=== PATIENT | female | born 1945 | race Caucasian/White ===

== ENCOUNTER 2021-04-11 13:20 | Emergency (ER) | payer MEDICARE, OTHER ==
[~2021-04-11] VITALS: Ht 172.7 cm; Wt 86.0 kg
[2021-04-11] MEDS ORDERED: KETOROLAC 30 MG/1 ML ONE (14:59)
[2021-04-11] MEDS ORDERED: DIAZEPAM 5 MG TABLET ONE (14:59)
[2021-04-11] MEDS ORDERED: OXYcodone/APAP 5/325MG TABLET ONE (14:59)
[2021-04-11] MEDS ORDERED: DIAZEPAM 5 MG TABLET PO ONE (15:00)
[2021-04-11] MEDS ORDERED: KETOROLAC 30 MG/1 ML IM ONE (15:00)
[2021-04-11] MEDS ORDERED: OXYcodone/APAP 5/325MG TABLET PO ONE (15:00)
[2021-04-11 16:00] VITALS: BP 138/88
== END 2021-04-11 16:02 | disposition home or self-care (01) ==
LOC: ED 15:49
DX: M47.812 Spondylosis without myelopathy or radiculopathy, cervical region (principal); I10 Essential (primary) hypertension; Z87.891 Personal history of nicotine dependence
CPT/HCPCS: 96372; 99283; J1885

== ENCOUNTER 2021-06-11 12:21 | Inpatient (IN) | payer MEDICARE, OTHER ==
[~2021-06-11] VITALS: Ht 172.7 cm; Wt 86.6 kg
--- NOTE | 2021-06-11 13:13 | NUR ---
PT CALLED, NOT IN LOBBY
[2021-06-11] MEDS ORDERED: SODIUM CHLORIDE FLUSH 10ML SYR IVF ONE (14:00)
[2021-06-11] MEDS ORDERED: DIPH,PERTUSS(ACELL),TET VAC/PF 0.5 ML IM-VACC ONE ×2 (14:30→16:33)
--- NOTE | 2021-06-11 14:52 | NUR ---
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
[2021-06-11 14:58] LABS: BASOPHILS % (AUTO) 1 % (0-1); EOSINOPHILS % (AUTO) 0 % (1-7); LYMPHOCYTES % (AUTO) 23 % (22-44); MEAN CORPUSCULAR HGB CONC 33.5 g/dL (32.4-35.8); MEAN PLATELET VOLUME 7.5 fL (7.4-10.4); MONOCYTES % (AUTO) 9 % (2-9); NEUTROPHILS % (AUTO) 67 % (42-75); PLATELET COUNT 229 x10^3/uL (130-400); RED BLOOD COUNT 4.02 x10^6/uL (3.82-5.3)
--- NOTE | 2021-06-11 15:05 | NUR ---
CC OF WEAKNESS THROUGHOUT, BLURRY VISION, AND NEW TREMORS. PT REPORTS HAVING A FALL LAST NIGHT WHILE MAKING HER BED AND HITTING THE BACK OF HER HEAD. NO OBVIOUS BLEEDING, PT REPORTS BLEEDING WAS CONTROLLED AT HOME AND NO LOC. PT ALSO STATES SHE NORMALLY DOES NOT HAVE PERIPHERAL VISION BUT LATELY VISION HAS BEEN MORE BLURRY. LEFT EYE IS A PROSTHETIC. RIGHT PUPIL IS OVAL SHAPED WHICH SHE STATES HAS BEEN PRESENT SINCE . AFTER AMBULATING PT TO RESTROOM, PTS LEFT ARM BECAME VERY TERMULOUS. PT ABLE TO GRAB BEDSIDE RAILING TO STOP TREMOR BUT IT DOES CONTINUE WHEN SHE LETS GO.
[2021-06-11 15:07] LABS: ALBUMIN 3.9 g/dL (3.4-5.0); ANION GAP 14 mmol/L (5-15); CALCIUM 9.5 mg/dL (8.5-10.1); CHLORIDE 101 mmol/L (98-107)
[2021-06-11 15:23] LABS: ALANINE AMINOTRANSFERASE 236 U/L (12-78); ALKALINE PHOSPHATASE 77 U/L (45-117); BILIRUBIN,TOTAL 0.5 mg/dL (0.2-1.0); CREATININE 4.26 mg/dL (0.55-1.02); TOTAL PROTEIN 7.7 g/dL (6.4-8.2)
[2021-06-11 15:25] LABS: TROPONIN I 0.281 ng/mL (0.000-0.045)
[2021-06-11] MEDS ORDERED: SODIUM CHLORIDE 0.9% 1,000 ML IV ONE (15:30)
[2021-06-11 15:44] LABS: MICROSCOPIC INDICATED
[2021-06-11] MEDS ORDERED: CEFTRIAXONE 1,000 MG in DEXTROSE 5% 50 ML IVPB ONE (17:30)
[2021-06-11] MEDS ORDERED: BISACODYL 10 MG SUPP PR PRN (18:30)
[2021-06-11] MEDS ORDERED: ONDANSETRON ODT 4 MG PO PRN (18:30)
[2021-06-11] MEDS ORDERED: POLYETHYLENE GLYCOL 17 GM PACKET PO PRN (18:30)
--- NOTE | 2021-06-11 18:44 | NUR ---
US AT BEDSIDE
[2021-06-11 20:43] LABS: TROPONIN I 0.196 ng/mL (0.000-0.045)
--- NOTE | 2021-06-11 22:50 | NUR ---
REPORT GIVEN TO ROSA MARTINEZ
[2021-06-11 23:25] VITALS: BP 157/82
[2021-06-11] MEDS: SODIUM CHLORIDE 0.9% 1,000 ML IV SCH (23:28)
[2021-06-11] MEDS: HEPARIN 5,000 UNITS/ML, 1ML SQ SCH (23:28)
[2021-06-12] VITALS (8 sets, daily range): BP systolic 119–183; BP diastolic 63–91
[2021-06-12 03:39] LABS: ALANINE AMINOTRANSFERASE 189 U/L (12-78); ALBUMIN 3.7 g/dL (3.4-5.0); ANION GAP 10 mmol/L (5-15); CALCIUM 9.4 mg/dL (8.5-10.1); CHLORIDE 110 mmol/L (98-107); CREATININE 1.77 mg/dL (0.55-1.02); TROPONIN I 0.166 ng/mL (0.000-0.045)
[2021-06-12 03:41] LABS: ALKALINE PHOSPHATASE 67 U/L (45-117); BILIRUBIN,TOTAL 0.5 mg/dL (0.2-1.0); TOTAL PROTEIN 7.4 g/dL (6.4-8.2)
[2021-06-12 04:31] LABS: BASOPHILS % (AUTO) 1 % (0-1); EOSINOPHILS % (AUTO) 1 % (1-7); LYMPHOCYTES % (AUTO) 40 % (22-44); MEAN CORPUSCULAR HEMOGLOBIN 34.5 pg (27.0-34.8); MEAN CORPUSCULAR HGB CONC 34.3 g/dL (32.4-35.8); MEAN PLATELET VOLUME 7.6 fL (7.4-10.4); MONOCYTES % (AUTO) 10 % (2-9); NEUTROPHILS % (AUTO) 49 % (42-75); PLATELET COUNT 177 x10^3/uL (130-400); RED BLOOD COUNT 3.61 x10^6/uL (3.82-5.3); RED CELL DISTRIBUTION WIDTH 14.1 % (9.6-15.2)
[2021-06-12] MEDS: ASPIRIN 81 MG TABLET EC PO SCH (06:07)
[2021-06-12 06:48] LABS: CHLORIDE,URINE RANDOM 19 mmol/L; POTASSIUM,URINE RANDOM 8 mmol/L; SODIUM,URINE RANDOM 38 mmol/L
[2021-06-12] MEDS: ACETAMINOPHEN 325 MG TABLET PO PRN ×3 (07:26→19:49)
[2021-06-12] MEDS: HEPARIN 5,000 UNITS/ML, 1ML SQ SCH ×2 (07:30→16:57)
[2021-06-12] MEDS: SENNA/DOCUSATE TABLET PO SCH (07:30)
[2021-06-12] MEDS: SODIUM CHLORIDE 0.9% 1,000 ML IV SCH ×2 (07:30→17:02)
[2021-06-12] MEDS ORDERED: ARTIFICIAL TEARS 15 DROP/ML BOTTLE EACHEYE PRN (08:30)
[2021-06-12] MEDS ORDERED: AMLO-211 PO (13:51)
[2021-06-12] MEDS ORDERED: GABA-826 PO (13:51)
[2021-06-12] MEDS ORDERED: SERT-237 PO (13:51)
[2021-06-12] MEDS ORDERED: RED600CA2 PO (13:51)
[2021-06-12] MEDS ORDERED: LEVO88CA4 PO (13:51)
[2021-06-12] MEDS ORDERED: HYDR-826 PO (13:51)
[2021-06-12] MEDS: hydrALAzine 20 MG/ML, 1ML IVPush PRN ×2 (15:48→21:28)
[2021-06-12] MEDS ORDERED: MORPHINE SULFATE 4 MG/ML, 1ML IVPush ONE (16:30)
[2021-06-12] MEDS ORDERED: CEFTRIAXONE 1,000 MG in DEXTROSE 5% 50 ML IVPB SCH (18:00)
[2021-06-12] MEDS: AMLODIPINE 10 MG TAB PO SCH (19:49)
[2021-06-12] MEDS ORDERED: LIDODERM 5% PATCH TD SCH (22:30)
[2021-06-13] MEDS: HEPARIN 5,000 UNITS/ML, 1ML SQ SCH ×2 (00:07→10:33)
[2021-06-13 01:13] VITALS: BP 175/85
[2021-06-13] MEDS: hydrALAzine 20 MG/ML, 1ML IVPush PRN (01:44)
[2021-06-13] MEDS: OXYcodone IR 5MG TABLET PO PRN ×2 (01:44→05:51)
[2021-06-13 02:45] VITALS: BP 150/74
[2021-06-13] MEDS: SODIUM CHLORIDE 0.9% 1,000 ML IV SCH (03:30)
[2021-06-13 05:26] LABS: BASOPHILS % (AUTO) 1 % (0-1); EOSINOPHILS % (AUTO) 1 % (1-7); LYMPHOCYTES % (AUTO) 32 % (22-44); MEAN CORPUSCULAR HEMOGLOBIN 34.2 pg (27.0-34.8); MEAN PLATELET VOLUME 7.9 fL (7.4-10.4); MONOCYTES % (AUTO) 13 % (2-9); NEUTROPHILS % (AUTO) 54 % (42-75); PLATELET COUNT 189 x10^3/uL (130-400); RED BLOOD COUNT 3.83 x10^6/uL (3.82-5.3); RED CELL DISTRIBUTION WIDTH 13.9 % (9.6-15.2)
[2021-06-13 05:37] LABS: ALBUMIN 3.5 g/dL (3.4-5.0); ANION GAP 9 mmol/L (5-15); CALCIUM 9.3 mg/dL (8.5-10.1); CHLORIDE 109 mmol/L (98-107)
[2021-06-13 05:41] LABS: ALANINE AMINOTRANSFERASE 151 U/L (12-78); ALKALINE PHOSPHATASE 61 U/L (45-117); BILIRUBIN,TOTAL 0.6 mg/dL (0.2-1.0); CHOL/HDL RATIO 3.4; CHOLESTEROL, TOTAL 161 mg/dL (140-239); HDL CHOL % 30 % (28-40); HDL CHOLESTEROL (DIRECT) 48 mg/dL (40-60); LDL CHOLESTEROL,CALCULATED 76 mg/dL (54-169); LDL/HDL RATIO 1.6 (0.5-3.0); TOTAL PROTEIN 7.1 g/dL (6.4-8.2); TRIGLYCERIDES 183 mg/dL (50-200); VLDL CHOLESTEROL 37 mg/dL (0-25)
[2021-06-13] MEDS: ASPIRIN 81 MG TABLET EC PO SCH (05:51)
[2021-06-13 07:39] VITALS: BP 178/79
[2021-06-13 08:26] VITALS: BP 161/78
[2021-06-13] MEDS: SENNA/DOCUSATE TABLET PO SCH (08:28)
[2021-06-13] MEDS: AMLODIPINE 10 MG TAB PO SCH (08:28)
[2021-06-13] MEDS ORDERED: SERTRALINE 50MG TABLET PO SCH (09:00)
[2021-06-13] MEDS ORDERED: LEVOTHYROXINE 88 MCG TABLET PO SCH (09:00)
[2021-06-13] MEDS ORDERED: LISINOPRIL 20 MG TABLET PO SCH (09:00)
[2021-06-13 10:32] VITALS: BP 156/83
[2021-06-13 12:53] VITALS: BP 158/84
[2021-06-13] MEDS ORDERED: ASPI81TA45 PO (14:30)
[2021-06-13] MEDS ORDERED: CEFD300C37 PO (14:30)
[2021-06-13] MEDS ORDERED: LISI-170 PO (14:30)
== END 2021-06-13 17:00 | disposition home or self-care (01) | DRG 682 ==
LOC: ED 17:44 → EDIP 18:00 → 4WST 23:03
PROVIDERS: ADMIT Family Medicine; ATTEND Family Medicine
DX: N17.0 Acute kidney failure with tubular necrosis (principal); I21.A1 Myocardial infarction type 2; E87.1 Hypo-osmolality and hyponatremia; N39.0 Urinary tract infection, site not specified; D75.89 Other specified diseases of blood and blood-forming organs; E03.9 Hypothyroidism, unspecified; I10 Essential (primary) hypertension; R27.0 Ataxia, unspecified; R74.01 Elevation of levels of liver transaminase levels; Z85.3 Personal history of malignant neoplasm of breast; Z86.73 Personal history of transient ischemic attack (TIA), and cerebral infarction without residual deficits; Z87.891 Personal history of nicotine dependence; Z90.12 Acquired absence of left breast and nipple; Z90.710 Acquired absence of both cervix and uterus
CPT/HCPCS: 36415; 70450; 70551; 71045; 76770; 80053; 80061; 81001; 82436; 82570; 82607; 83036; 84133; 84300; 84484; 85025; 87077; 87086; 87186; 90715; 93005; 93306; 99285; G0378; J0696; J1644; J0360; J2270; J7030